=== PATIENT | male | born 1945 | race Caucasian/White ===

== ENCOUNTER 2018-02-03 10:55 | Inpatient (IN) ==
[2018-02-03] MEDS ORDERED: ONDANSETRON 4 MG/2 ML VIAL ONE (10:59)
[2018-02-03] MEDS ORDERED: ONDANSETRON 4 MG/2 ML VIAL IV STA ×2 (11:18→13:18)
[2018-02-03] MEDS ORDERED: SODIUM CHLORIDE 0.9% 1,000 ML IV STA (11:29)
[2018-02-03] MEDS ORDERED: PANTOPRAZOLE 40 MG VIAL IV STA (11:29)
[2018-02-03] MEDS ORDERED: PROMETHAZINE 25 MG/1 ML VIAL ONE (11:38)
[2018-02-03 11:39] LABS: Basophils # 0.1 10*3/uL (0.0-0.2); Basophils % 0.5 % (0.0-0.8); Eosinophils % 0.4 % (0.00-10.9); Hematocrit 33.5 VOL% (42.0-52.0); Hemoglobin 11.1 GM/DL (14.0-18.0); Immature Granulocytes % 0.7 %; Immature Granulocytes Absolute 0.08 #; Lymphocytes # 1.2 10*3/uL (1.4-4.0); Lymphocytes % 10.4 % (21.2-54.2); Mean Corpuscular HGB Conc 33.1 GM/DL (32-36); Mean Corpuscular Hemoglobin 30 PG (27-34); Mean Corpuscular Volume 89.6 FL (87-102); Mean Platelet Volume 10.6 FL (9.6-12.0); Monocytes # 0.5 10*3/uL (0.11-0.8); Monocytes % 4.3 % (1.7-12.7); Neutrophils # 9.4 10*3/uL (1.4-7.4); Neutrophils % 83.7 % (38.7-73.9); Platelet Count 187 T/CUMM (130-400); Red Blood Count 3.74 MC/CUMM (3.8-5.5); Red Cell Distribution Width 13.2 % (9.3-17.3); White Blood Count 11.2 T/CUMM (4-12)
[2018-02-03] MEDS ORDERED: PROMETHAZINE 25 MG/1 ML VIAL IM STA (11:41)
[2018-02-03 11:49] LABS: INR 1.1; PT Patient Result 11.3 SECS
[2018-02-03 12:23] LABS: Albumin 2.9 G/DL (3.4-5.0); Bilirubin,Total 1.3 MG/DL (0.2-1.0); Calcium 7.9 MG/DL (8.5-10.1); Osmolality,Calculated 293.4 MOS/KG (273-304); Total Protein 6.1 G/DL (6.4-8.3)
[2018-02-03] MEDS ORDERED: DEXTROSE 50% 25 GM/50 ML VIAL IV STA (12:30)
[2018-02-03] MEDS ORDERED: INSULIN REGULAR 100 UNIT/ML IV STA (12:31)
[2018-02-03] MEDS ORDERED: SODIUM BICARBONATE 50 MEQ/50 ML VIAL IV STA (12:31)
[2018-02-03] MEDS ORDERED: DEXTROSE 50% 25 GM/50 ML SYRINGE IV ONE (12:36)
[2018-02-03] MEDS ORDERED: SODIUM BICARBONATE 50 MEQ/50 ML SYRINGE IV ONE (12:39)
[2018-02-03] MEDS ORDERED: ALBUTEROL 2.5 MG/3 ML NEB RESP TX PRN (13:19)
[2018-02-03] MEDS ORDERED: ONDANSETRON 4 MG/2 ML VIAL IV PRN (13:19)
[2018-02-03] MEDS ORDERED: PROMETHAZINE 25 MG/1 ML VIAL IM PRN (13:19)
[2018-02-03] MEDS ORDERED: ACETAMINOPHEN 325 MG TABLET PO PRN (13:19)
[2018-02-03] MEDS ORDERED: SODIUM POLYSTYRENE SULFATE 15 GM/60 ML BOTTLE RECTAL STA (13:21)
[2018-02-03] MEDS ORDERED: SODIUM CHLORIDE 0.9% 1,000 ML IV ONE (13:24)
[2018-02-03] MEDS ORDERED: SODIUM CHLORIDE 0.9% 1,000 ML IV SCH (13:30)
[2018-02-03] MEDS ORDERED: PANTOPRAZOLE 40 MG VIAL IV SCH (13:30)
[2018-02-03] MEDS: SODIUM CHLORIDE 0.9% 1,000 ML IV SCH ×3 (15:32→23:33)
[2018-02-03] MEDS: OCTREOTIDE 500 MCG in SODIUM CHLORIDE 0.9% 100 ML IV SCH (15:56)
[2018-02-03 16:40] LABS: Hematocrit 24.1 VOL% (42.0-52.0); Hemoglobin 8.1 GM/DL (14.0-18.0)
[2018-02-03] MEDS ORDERED: SODIUM CHLORIDE 0.9% 1,000 ML IV PRN (16:52)
[2018-02-03 18:02] LABS: Apearance,Urine CLEAR (Clear); Bilirubin,Urine Negative (Negative); Blood, Urine Small mg/dL (Negative); Glucose,Urine (UA) 50 mg/dL (Negative); Hyaline Casts,Urine 1 /LPF (0-3); Ketones,Urine 5 mg/dL (Negative); Nitrite,Urine Negative (Negative); Protein,Urine Negative; RBC,Urine <1 /HPF (0-4); Urine Color Yellow (Yellow); Urine Specific Gravity 1.011 (1.001-1.035); WBC,Urine <1 /HPF (0-6)
[2018-02-03] MEDS ORDERED: PROMETHAZINE INJ 25 MG in SODIUM CHLORIDE 0.9% 50 ML IV PRN (19:11)
[2018-02-03] MEDS: SODIUM POLYSTYRENE SULFATE 15 GM/60 ML BOTTLE PO SCH (19:27)
[2018-02-03] MEDS: PANTOPRAZOLE 40 MG VIAL IV SCH (20:23)
[2018-02-03] MEDS ORDERED: diphenhydrAMINE CAP 50 MG CAPSULE PO ONE (21:00)
[2018-02-04] MEDS: OCTREOTIDE 500 MCG in SODIUM CHLORIDE 0.9% 100 ML IV SCH ×2 (01:10→11:15)
[2018-02-04] MEDS: SODIUM POLYSTYRENE SULFATE 15 GM/60 ML BOTTLE PO SCH (03:26)
[2018-02-04 05:43] LABS: Basophils # 0.1 10*3/uL (0.0-0.2); Basophils % 0.8 % (0.0-0.8); Eosinophils # 0.1 10*3/uL (0.0-0.87); Hematocrit 29.2 VOL% (42.0-52.0); Hemoglobin 9.8 GM/DL (14.0-18.0); Immature Granulocytes % 0.3 %; Immature Granulocytes Absolute 0.02 #; Lymphocytes # 2.1 10*3/uL (1.4-4.0); Lymphocytes % 33.8 % (21.2-54.2); Mean Corpuscular HGB Conc 33.6 GM/DL (32-36); Mean Corpuscular Hemoglobin 29 PG (27-34); Mean Corpuscular Volume 86.9 FL (87-102); Monocytes # 0.6 10*3/uL (0.11-0.8); Monocytes % 9.5 % (1.7-12.7); Neutrophils # 3.4 10*3/uL (1.4-7.4); Neutrophils % 54.6 % (38.7-73.9); Platelet Count 109 T/CUMM (130-400); Red Blood Count 3.36 MC/CUMM (3.8-5.5); Red Cell Distribution Width 14.4 % (9.3-17.3); White Blood Count 6.2 T/CUMM (4-12)
[2018-02-04 05:46] LABS: Hematocrit 29.1 VOL% (42.0-52.0)
[2018-02-04 06:09] LABS: Albumin 2.4 G/DL (3.4-5.0); Bilirubin,Total 0.8 MG/DL (0.2-1.0); Calcium 7.4 MG/DL (8.5-10.1); Osmolality,Calculated 314.1 MOS/KG (273-304); Potassium 4.4 MMOL/L (3.5-5.1); Total Protein 4.8 G/DL (6.4-8.3)
[2018-02-04] MEDS: SODIUM CHLORIDE 0.9% 1,000 ML IV SCH (07:28)
[2018-02-04] MEDS ORDERED: LIDOCAINE 2% 5 ML VIAL ONE (09:00)
[2018-02-04] MEDS ORDERED: PROPOFOL 200 MG/20 ML VIAL IV ONE (09:00)
[2018-02-04 11:06] LABS: Hematocrit 26.8 VOL% (42.0-52.0); Hemoglobin 9.1 GM/DL (14.0-18.0)
[2018-02-04] MEDS: DEXTROSE 5% 1,000 ML IV SCH ×2 (11:10→22:11)
[2018-02-04] MEDS: PANTOPRAZOLE 40 MG TABLET PO SCH (11:10)
[2018-02-04] MEDS: PANTOPRAZOLE 40 MG VIAL IV SCH (11:14)
[2018-02-04] MEDS: METOCLOPRAMIDE 10 MG/2 ML VIAL IV SCH ×3 (11:43→23:42)
[2018-02-04] MEDS ORDERED: hydrALAZINE 20 MG/1 ML VIAL IV PRN (13:47)
[2018-02-04] MEDS: amLODIPine 5 MG TABLET PO SCH (14:16)
[2018-02-04] MEDS: FINASTERIDE 5 MG TABLET PO SCH (14:17)
[2018-02-04] MEDS: SERTRALINE 100 MG TABLET PO SCH (14:17)
[2018-02-04] MEDS: TAMSULOSIN 0.4 MG CAPSULE PO SCH (17:41)
[2018-02-04] MEDS: OMEGA 3 ACID ETHYL ESTERS 1 GM CAPSULE PO SCH (20:35)
[2018-02-04] MEDS: MIRTAZAPINE 15 MG TABLET PO SCH (20:35)
[2018-02-05] MEDS: METOCLOPRAMIDE 10 MG/2 ML VIAL IV SCH (05:08)
[2018-02-05 05:23] LABS: Basophils % 0.5 % (0.0-0.8); Eosinophils # 0.3 10*3/uL (0.0-0.87); Eosinophils % 5.3 % (0.00-10.9); Hematocrit 25.7 VOL% (42.0-52.0); Hemoglobin 8.6 GM/DL (14.0-18.0); Immature Granulocytes % 0.4 %; Immature Granulocytes Absolute 0.02 #; Lymphocytes % 18.2 % (21.2-54.2); Mean Corpuscular HGB Conc 33.5 GM/DL (32-36); Mean Corpuscular Hemoglobin 30 PG (27-34); Mean Corpuscular Volume 89.2 FL (87-102); Mean Platelet Volume 10.4 FL (9.6-12.0); Monocytes # 0.5 10*3/uL (0.11-0.8); Monocytes % 7.9 % (1.7-12.7); Neutrophils # 3.8 10*3/uL (1.4-7.4); Neutrophils % 67.7 % (38.7-73.9); Platelet Count 100 T/CUMM (130-400); Red Blood Count 2.88 MC/CUMM (3.8-5.5); Red Cell Distribution Width 13.8 % (9.3-17.3); White Blood Count 5.7 T/CUMM (4-12)
[2018-02-05 05:51] LABS: Albumin 2.6 G/DL (3.4-5.0); Bilirubin,Total 0.8 MG/DL (0.2-1.0); Calcium 7.6 MG/DL (8.5-10.1); Osmolality,Calculated 303.6 MOS/KG (273-304); Potassium 3.7 MMOL/L (3.5-5.1)
[2018-02-05] MEDS: OMEGA 3 ACID ETHYL ESTERS 1 GM CAPSULE PO SCH ×2 (08:59→20:48)
[2018-02-05] MEDS: SERTRALINE 100 MG TABLET PO SCH (08:59)
[2018-02-05] MEDS: PANTOPRAZOLE 40 MG TABLET PO SCH (08:59)
[2018-02-05] MEDS: amLODIPine 5 MG TABLET PO SCH (08:59)
[2018-02-05] MEDS: FINASTERIDE 5 MG TABLET PO SCH (08:59)
[2018-02-05] MEDS: ATORVASTATIN 20 MG TABLET PO SCH (08:59)
[2018-02-05] MEDS ORDERED: ALBUTEROL 2.5 MG/3 ML NEB RESP TX PRN (10:22)
[2018-02-05] MEDS: METOCLOPRAMIDE 10 MG/10 ML UDCUP PO SCH ×3 (12:06→20:48)
[2018-02-05] MEDS ORDERED: COLCHICINE 0.6 MG TABLET PO PRN (12:54)
[2018-02-05] MEDS: DEXTROSE 5% 1,000 ML IV SCH ×2 (13:24→22:55)
[2018-02-05] MEDS: ALLOPURINOL 300 MG TABLET PO SCH (13:24)
[2018-02-05] MEDS: TAMSULOSIN 0.4 MG CAPSULE PO SCH (17:40)
[2018-02-05] MEDS: MIRTAZAPINE 15 MG TABLET PO SCH (20:48)
[2018-02-06] MEDS: METOCLOPRAMIDE 10 MG/10 ML UDCUP PO SCH ×2 (07:54→12:00)
[2018-02-06 08:34] LABS: Basophils % 0.6 % (0.0-0.8); Eosinophils # 0.4 10*3/uL (0.0-0.87); Eosinophils % 7.8 % (0.00-10.9); Hemoglobin 8.8 GM/DL (14.0-18.0); Immature Granulocytes % 0.2 %; Immature Granulocytes Absolute 0.01 #; Lymphocytes # 1.5 10*3/uL (1.4-4.0); Lymphocytes % 31.6 % (21.2-54.2); Mean Corpuscular HGB Conc 33.8 GM/DL (32-36); Mean Corpuscular Hemoglobin 30 PG (27-34); Mean Corpuscular Volume 88.1 FL (87-102); Mean Platelet Volume 10.5 FL (9.6-12.0); Monocytes # 0.4 10*3/uL (0.11-0.8); Monocytes % 8.9 % (1.7-12.7); Neutrophils # 2.4 10*3/uL (1.4-7.4); Neutrophils % 50.9 % (38.7-73.9); Platelet Count 98 T/CUMM (130-400); Red Blood Count 2.95 MC/CUMM (3.8-5.5); Red Cell Distribution Width 13.3 % (9.3-17.3); White Blood Count 4.7 T/CUMM (4-12)
[2018-02-06 08:42] LABS: Albumin 2.6 G/DL (3.4-5.0); Bilirubin,Total 0.5 MG/DL (0.2-1.0); Calcium 7.8 MG/DL (8.5-10.1); Osmolality,Calculated 295.6 MOS/KG (273-304); Potassium 3.5 MMOL/L (3.5-5.1); Total Protein 5.3 G/DL (6.4-8.3)
[2018-02-06] MEDS ORDERED: APIXABAN 5 MG TABLET PO SCH (09:00)
[2018-02-06] MEDS: ALLOPURINOL 300 MG TABLET PO SCH (10:13)
[2018-02-06] MEDS: SERTRALINE 100 MG TABLET PO SCH (10:14)
[2018-02-06] MEDS: ATORVASTATIN 20 MG TABLET PO SCH (10:15)
[2018-02-06] MEDS: FINASTERIDE 5 MG TABLET PO SCH (10:15)
[2018-02-06] MEDS: amLODIPine 5 MG TABLET PO SCH (10:15)
[2018-02-06] MEDS: OMEGA 3 ACID ETHYL ESTERS 1 GM CAPSULE PO SCH (10:15)
[2018-02-06] MEDS: PANTOPRAZOLE 40 MG TABLET PO SCH (10:15)
[2018-02-06 12:58] VITALS: BP 142/64
[2018-02-06] MEDS: DEXTROSE 5% 1,000 ML IV SCH (13:00)
[2018-02-06 14:47] LABS: Hypochromasia 1+; Microcytosis Slight; Platelet Estimate Decreased
== END 2018-02-06 13:30 | disposition home or self-care (01) | DRG 813 ==
LOC: EDUNIT# → N.ED 10:55 → N.EDINP 13:03 → N.CC 13:39 → N.2E 02-05 12:52
PROVIDERS: ADMIT Internal Medicine; ATTEND Internal Medicine